=== PATIENT | male | born 1960 | race Caucasian/White ===

== ENCOUNTER 2021-03-29 20:00 | Outpatient (CLI) | payer MEDICARE, SELFPAY | END 2021-03-29 20:01 | disposition home or self-care (01) | LOC: SLEEP 03-30 08:50 | PROVIDERS: Family Provider Family Medicine; Visit Provider Nurse Practitioner Family | DX: G47.30 Sleep apnea, unspecified (principal) | CPT/HCPCS: 95810; 95811 ==

== ENCOUNTER 2021-07-21 20:00 | Outpatient (CLI) | payer MEDICARE, SELFPAY | END 2021-07-21 20:01 | disposition home or self-care (01) | LOC: SLEEP 07-22 14:41 | PROVIDERS: Family Provider Family Medicine; Visit Provider Nurse Practitioner Family | DX: G47.33 Obstructive sleep apnea (adult) (pediatric) (principal) | CPT/HCPCS: 95811 ==

== ENCOUNTER 2021-09-28 06:00 | Outpatient (RCR) | payer MEDICARE, SELFPAY | END 2021-10-13 23:59 | disposition home or self-care (01) | LOC: GPT 06:00 | PROVIDERS: PCP Nurse Practitioner Family; Referring Provider Registered Nurse; Visit Provider Registered Nurse | DX: M54.50 Low back pain, unspecified (principal) | CPT/HCPCS: 97110; 97162 ==

== ENCOUNTER 2021-10-12 07:41 | Outpatient (CLI) | payer MEDICARE, SELFPAY ==
--- NOTE | 2021-10-12 08:03 | MR_ITS ---
WS: [id number] MRI LUMBAR SPINE NONCONTRAST TECHNIQUE: Sagittal T1, T2 and STIR imaging. Axial T1 and T2 imaging. CLINICAL INFORMATION: RADICULOPATHY LUMBAR REGION COMPARISON: None. FINDINGS: Mild lumbar curve. No acute compression. No high-grade central canal stenosis. RIGHT subarticular dis c extrusion posterior to the L4 vertebral body measuring 8 x 17 mm AP by craniocaudal. L1-L2: Normal. L2-L3: Mild annular bulging. Mild facet arthropathy. Spinal canal and foramen are patent. L3-L4: Mild annular bulging. Spinal canal and foramen are patent at this level. Mild facet arthropath y. L4-L5: RIGHT subarticular disc extrusion posterior to the L4 vertebral body. This impinges the akbar sing RIGHT L4 and L5 nerve roots. This extends into the RIGHT proximal L4-L5 foraminal narrowing impi nges the exiting RIGHT L4 nerve root with moderate RIGHT foraminal narrowing. Mild LEFT foraminal kishor rowing. Mild facet arthropathy. Spinal canal is patent. Mild central canal stenosis posterior to the L4 vertebral body. L5-S1: Mild disc osteophytic ridging eccentric to the LEFT. Contact of the exiting LEFT L5 nerve root . Mild LEFT foraminal narrowing. RIGHT foramen is patent. Mild facet arthropathy. Partially visualized aneurysmal ascending thoracic aorta measuring 3.6 cm. This could be further eval uated with CTA chest.RIGHT renal cyst. Slightly aneurysmal distal abdominal aorta measuring 2.7 cm in maximum AP dimension. MR/MR lumbar spine wo con* [id number] IMPRESSION: 1. Disc extrusion posterior to the L4 vertebral body measuring 8 x 17 mm descr ibed above. Impingement on the RIGHT subarticular recess and traversing RIGHT L 4 and L5 nerve roots. This extends into the RIGHT proximal neural foramen and i mpinges the exiting RIGHT L4 nerve root. 2. Mild LEFT L5-S1 bony foraminal narrowing. 3. Mild facet arthropathy L4-L5 and L5-S1. 4. Partially visualized aneurysmal ascending thoracic aorta measuring 3.6 CM. This can be further evaluated with CTA chest.
== END 2021-10-12 07:42 | disposition home or self-care (01) ==
PROVIDERS: PCP Nurse Practitioner Family; Visit Provider Registered Nurse
DX: M54.16 Radiculopathy, lumbar region (principal)
CPT/HCPCS: 72148

== ENCOUNTER 2021-11-30 15:56 | Outpatient (CLI) | payer MEDICARE, SELFPAY ==
--- NOTE | 2021-11-30 16:02 | CT_ITS ---
WS: [id number] CTA CHEST ABDOMEN AND PELVIS TECHNIQUE: Noncontrast plus contrast enhanced CTA of the chest, abdomen, and pelvis with coronal and sagittal reformatted images and additional MIP Images. CLINICAL INFORMATION: THORACIC AORTIC ANEURYSM, ABDOMINAL AORTIC ANEURYSM COMPARISON: MRI October 12, 2021 DLP: 1679.[address] scans at [facility] use at least one of these dose optimization techniques: automated e xposure control; mA and/or kV adjustment per patient size (includes targeted exams where dose is matc hed to clinical indication); or iterative reconstruction. FINDINGS: Ascending thoracic aorta measures 3.5 cm in maximum dimension unchanged since the prior MRI. Tortuous aortic arch is normal in caliber. Normal caliber descending thoracic aorta. Slightly aneurysmal infrarenal abdominal aorta with moderate atheromatous disease. Infrarenal abdomin al aorta measures 2.2 x 2.4 cm in maximum dimension AP by transverse. Celiac and SMA are patent. Prox imal main renal arteries are patent with mild calcification. Moderate calcification of the RIGHT grea ter than LEFT common iliac artery origins. No mediastinal or hilar lymphadenopathy. Coronary calcification. Both lungs are well aerated. No acut e pulmonary infiltrates. No focal pneumonia or pleural fluid. No axillary lymphadenopathy. Normal liver. Normal spleen. Normal GE junction. Adrenal glands are normal. Normal renal parenchymal enhancement. No hydronephrosis. Fatty atrophy of the pancreas. Sigmoid diverticulosis. Normal appendix. . Calcified mild enlargement of prostate measuring 3.[address]/CT angio chest abdomen pelvis IMPRESSION: 1. Ascending thoracic aorta measures 3.5 cm in maximum dimension. 2. Tortuous thoracic aorta is normal in caliber. 3. Slightly aneurysmal infrarenal abdominal aorta with moderate atheromatous d isease. Maximum dimension measures 2.1 x 2.5 cm AP by transverse. 4. Celiac and SMA are patent. Proximal renal arteries are patent with mild ost ial calcification. CHRISTELLE is patent. 5. Calcified slightly enlarged prostate measuring 3.7 x 4.3 CCM. Recommend cor relation PSA. 6. No other acute findings.
[2021-11-30] MEDS: iohexol 350 mg/mL 100 mL Btl IV (16:21)
== END 2021-11-30 15:57 | disposition home or self-care (01) ==
PROVIDERS: PCP Nurse Practitioner; Visit Provider Nurse Practitioner
DX: I71.2 Thoracic aortic aneurysm, without rupture (principal); I71.4 Abdominal aortic aneurysm, without rupture; I70.0 Atherosclerosis of aorta; N40.0 Benign prostatic hyperplasia without lower urinary tract symptoms
CPT/HCPCS: 71275; 74174

== ENCOUNTER → 2022-02-09 14:35 | Outpatient (BNVA) | payer MEDICARE, SELFPAY | PROVIDERS: PCP Nurse Practitioner; Visit Provider Urology | DX: N40.0 Benign prostatic hyperplasia without lower urinary tract symptoms (principal); N28.1 Cyst of kidney, acquired | CPT/HCPCS: 51741; 51798; 81003; 99203 ==

== ENCOUNTER → 2023-08-17 09:58 | Outpatient (BNVA) | payer MEDICARE, SELFPAY | PROVIDERS: PCP Nurse Practitioner; Visit Provider Nurse Practitioner Family | DX: L57.0 Actinic keratosis (principal); L82.1 Other seborrheic keratosis; D48.5 Neoplasm of uncertain behavior of skin; L81.7 Pigmented purpuric dermatosis; L81.4 Other melanin hyperpigmentation; D22.5 Melanocytic nevi of trunk; L85.3 Xerosis cutis; L57.8 Other skin changes due to chronic exposure to nonionizing radiation | CPT/HCPCS: 11104; 17000; 99203 ==

== ENCOUNTER → 2023-09-19 12:53 | Outpatient (BNVA) | payer MEDICARE, SELFPAY | PROVIDERS: PCP Nurse Practitioner; Visit Provider Dermatology | DX: L82.1 Other seborrheic keratosis (principal); D48.5 Neoplasm of uncertain behavior of skin; L82.0 Inflamed seborrheic keratosis; D36.12 Benign neoplasm of peripheral nerves and autonomic nervous system, upper limb, including shoulder; L81.4 Other melanin hyperpigmentation | CPT/HCPCS: 11102; 17110; 99213 ==

== ENCOUNTER 2023-10-08 14:35 | Outpatient (CLI) | payer MEDICARE, MEDICAID, SELFPAY ==
--- NOTE | 2023-10-08 14:38 | CTR_ITS ---
PROCEDURE INFORMATION: Exam: CT Chest Without Contrast; Diagnostic Exam date and time: 10/08/2023 2:51 PM Age: 62 years old Clinical indication: Condition or disease; Other: Thoracic aortic aneurysm w/o rupture; Prior surgery; Surgery date: 6+ months; Surgery type: Bilat shoulder TECHNIQUE: Imaging protocol: Diagnostic computed tomography of the chest without contrast. Radiation optimization: All CT scans at this facility use at least one of these dose optimization techniques: automated exposure control; mA and/or kV adjustment per patient size (includes targeted exams where dose is matched to clinical indication); or iterative reconstruction. COMPARISON: CT ang ches abdpel [id number] 11/30/2021 4:10 PM RADIATION DOSE METRICS: Total DLP (mGy-cm): 602.22 FINDINGS: Thyroid: Grossly unremarkable. Lungs: No focal consolidation. No pneumothorax. Pleural spaces: No pleural effusion. Heart: No cardiomegaly. No pericardial effusion. Coronary arteries: There are incidental dense coronary artery calcifications with involvement of the left main. Mediastinal space: Trachea and airway are grossly patent. No evidence of mediastinal hemorrhage or hematoma. Lymph nodes: No evidence of mediastinal adenopathy. Evaluation for hilar adenopathy is limited by lack of IV contrast. Vasculature: Borderline aneurysmal dilatation of the descending thoracic aorta to 3.0 cm. There is ectasia of the ascending thoracic aorta measuring up to 3.9 cm in diameter. Moderate atherosclerosis. Evaluation for acute vascular injury or thrombosis is limited by lack of IV contrast. Bones/joints: No evidence of acute fracture or aggressive osseous lesion. Soft tissues: No evidence of fluid collection or hematoma in the superficial soft tissues. Other findings: No evidence of acute abnormality in the upper abdomen. CT/CT chest [facility] [id number] IMPRESSION: 1. No evidence of acute abnormality within limitations of a noncontrast exam. 2. Borderline aneurysmal dilatation of the descending thoracic aorta.
== END 2023-10-08 14:36 | disposition home or self-care (01) ==
LOC: RAD 14:35
PROVIDERS: PCP Nurse Practitioner; Visit Provider Nurse Practitioner
DX: I77.810 Thoracic aortic ectasia (principal)
CPT/HCPCS: 71250

== ENCOUNTER → 2024-02-27 10:35 | Outpatient (BNVA) | payer MEDICARE, SELFPAY | PROVIDERS: PCP Nurse Practitioner; Visit Provider Podiatrist Foot & Ankle Surgery | DX: B35.3 Tinea pedis; E11.69 Type 2 diabetes mellitus with other specified complication; Z79.84 Long term (current) use of oral hypoglycemic drugs | CPT/HCPCS: 99203 ==

== ENCOUNTER → 2024-03-19 09:58 | Outpatient (BNVA) | payer MEDICARE, SELFPAY | PROVIDERS: PCP Nurse Practitioner; Visit Provider Podiatrist Foot & Ankle Surgery | DX: B35.3 Tinea pedis; E11.69 Type 2 diabetes mellitus with other specified complication; Z79.84 Long term (current) use of oral hypoglycemic drugs | CPT/HCPCS: 99213 ==

== ENCOUNTER → 2024-04-30 12:53 | Outpatient (BNVA) | payer MEDICARE, SELFPAY | PROVIDERS: PCP Nurse Practitioner; Visit Provider Nurse Practitioner | DX: M65.331 Trigger finger, right middle finger (principal); M79.641 Pain in right hand | CPT/HCPCS: 73130; 99204 ==

== ENCOUNTER → 2024-06-16 09:27 | Outpatient (BNVA) | payer MEDICARE, SELFPAY | PROVIDERS: PCP Nurse Practitioner; Visit Provider Dermatology | DX: C44.41 Basal cell carcinoma of skin of scalp and neck (principal) | CPT/HCPCS: 13121; 17311 ==

== ENCOUNTER → 2024-10-28 09:21 | Outpatient (BNVA) | payer MEDICARE, SELFPAY | PROVIDERS: PCP Nurse Practitioner; Visit Provider Nurse Practitioner Family | DX: D22.71 Melanocytic nevi of right lower limb, including hip (principal); L57.8 Other skin changes due to chronic exposure to nonionizing radiation; L81.4 Other melanin hyperpigmentation; D22.61 Melanocytic nevi of right upper limb, including shoulder; L82.1 Other seborrheic keratosis; L82.0 Inflamed seborrheic keratosis; L53.8 Other specified erythematous conditions; L29.89 Other pruritus; Z78.9 Other specified health status; R20.8 Other disturbances of skin sensation; R58 Hemorrhage, not elsewhere classified; H53.452 Other localized visual field defect, left eye | CPT/HCPCS: 11102; 17000; 17110; 99213 ==

== ENCOUNTER → 2024-11-25 13:52 | Outpatient (BNVA) | payer MEDICARE, SELFPAY | PROVIDERS: PCP Nurse Practitioner; Visit Provider Dermatology | DX: L82.1 Other seborrheic keratosis (principal); L81.4 Other melanin hyperpigmentation; Z08 Encounter for follow-up examination after completed treatment for malignant neoplasm; Z85.828 Personal history of other malignant neoplasm of skin; C44.319 Basal cell carcinoma of skin of other parts of face | CPT/HCPCS: 12052; 17311; 99213 ==

== ENCOUNTER 2024-12-11 13:13 | Outpatient (CLI) | payer OTHER, SELFPAY ==
--- NOTE | 2024-12-11 13:21 | CT_ITS ---
WS: [id number] CT chest wo con [id number] HISTORY: THORACIC AORTIC ANEURYSM W/O RUPTURE TECHNIQUE: Axial imaging performed through the thorax. Coronal and sagittal reformats are submitted. All CT scans at [facility] use at least one of these dose optimization techniques: automated exposure control; mA and/or kV adjustment per patient size (includes targeted exams where dose is matched to clinical indication); or iterative reconstruction. CONTRAST: None DLP: 541.83 mGy.cm COMPARISON: 10/08/2023 Lungs and central airway: Subsegmental linear atelectasis in the lingula. No suspicious masses or nodules. No pneumonia. Benign granuloma LEFT upper lobe. Pleura: Normal. No pleural effusion. Heart and pericardium: Mild anterior pericardial thickening. Mediastinum and josh: No adenopathy. Vessels: Ectatic thoracic aorta with scattered atherosclerotic plaque. Ascending aorta is normal caliber at 3.6 cm. Mild dilatation through the aortic arch and proximal descending aorta measuring up to 3.3 cm in diameter. Atherosclerotic plaque and ectasia continues into the RIGHT innominate artery. No aneurysm. Chest wall and lower neck: No soft tissue masses. Upper abdomen: No adrenal mass. Osseous structures: No destructive process. CT/CT chest wo con [id number] IMPRESSION: 1. Mildly ectatic thoracic aorta. No ascending thoracic aortic aneurysm. 2. Through the aortic arch there is mild ectasia and dilatation with atheroscl erotic plaque. Maximum diameter 3.6 cm. 3. No mediastinal or hilar adenopathy. 4. No pulmonary mass or nodule.
== END 2024-12-11 13:14 | disposition home or self-care (01) ==
LOC: RAD 13:14
PROVIDERS: PCP Nurse Practitioner; Visit Provider Nurse Practitioner
DX: I71.20 Thoracic aortic aneurysm, without rupture, unspecified (principal); I70.0 Atherosclerosis of aorta
CPT/HCPCS: 71250